=== PATIENT | female | born 1960 | race Two or more races ===

== ENCOUNTER 2023-10-14 08:22 | Emergency (ER) | payer BC ==
[~2023-10-14] VITALS: Ht 162.6 cm; Wt 73.9 kg
[2023-10-14] MEDS ORDERED: CRESTOR40 MG PO (08:36)
[2023-10-14] MEDS ORDERED: SYMBICORT 80/10.2 GM IH (08:37)
[2023-10-14] MEDS ORDERED: NORVASC5 MG PO (08:37)
[2023-10-14] MEDS ORDERED: KETOROLAC TROMETHAMINE 60 MG VIAL IM ONE (09:00)
== END 2023-10-14 10:30 | disposition home or self-care (01) ==
LOC: ER 08:23
DX: S82.122A Displaced fracture of lateral condyle of left tibia, initial encounter for closed fracture (principal); W22.8XXA Striking against or struck by other objects, initial encounter; Y93.89 Activity, other specified; Y92.832 Beach as the place of occurrence of the external cause; Z88.6 Allergy status to analgesic agent; Z91.041 Radiographic dye allergy status